=== PATIENT | female | born 1960 | race Caucasian/White ===

== ENCOUNTER → 2017-07-25 | Outpatient (CLI) | payer OTHER | END | disposition home or self-care (01) | LOC: PCVCIMAG 15:31 | DX: I10 Essential (primary) hypertension (principal); R00.2 Palpitations; R00.0 Tachycardia, unspecified; E78.5 Hyperlipidemia, unspecified; Z82.49 Family history of ischemic heart disease and other diseases of the circulatory system | CPT/HCPCS: 93325; 93351 ==